=== PATIENT | female | born 1935 | race Hispanic/Latino ===

== ENCOUNTER → 2020-12-15 | Outpatient (CLI) | payer OTHER ==
[~2020-12-15] MED LIST: ALEN70TA80 PO; CYAN1000I IM; FISH1CAP20 PO; FLAX10002 PO; IRON150C5 PO; LACT1CAP65 PO; PANT40TA54 PO; SIMV-43 PO; VICOT PO; [UNRECOGNIZED DRUG - CODE] PO; [UNRECOGNIZED DRUG - OTHER] PO
== END | disposition home or self-care (01) ==
LOC: SHCH 09:17
PROVIDERS: ATTEND Internal Medicine Cardiovascular Disease
DX: R09.89 Other specified symptoms and signs involving the circulatory and respiratory systems (principal); R01.1 Cardiac murmur, unspecified
CPT/HCPCS: 93880